=== PATIENT | male | born 1980 | race Caucasian/White ===

== ENCOUNTER 2024-06-26 16:17 | Inpatient (IN) | payer SELFPAY ==
[~2024-06-26] VITALS: Ht 188 cm; Wt 132.7 kg
[2024-06-26 17:11] LABS: BASOPHILS % 1.1 % (0.0-2.0); DIFFERENTIAL COMMENT 0; EOSINOPHILS % 1.7 % (0.0-5.0); HEMATOCRIT. 31.9 % (42.0-52.0); HEMOGLOBIN. 10.9 g/dL (14.0-18.0); LYMPHOCYTES % 16.7 % (20.0-50.0); MEAN CORPUSCULAR HEMOGLOBIN 34.2 pg (28.0-32.0); MEAN CORPUSCULAR HGB CONC 34.3 g/dL (31.0-37.0); MEAN CORPUSCULAR VOLUME 99.7 fL (80.0-94.0); MEAN PLATELET VOLUME 8.6 fl (7.4-10.4); MONOCYTES % 12.4 % (2.0-8.0); NEUTROPHILS % 68.1 % (40.0-76.0); PLATELET 58 x1000/uL (130-400); RED CELL DISTRIBUTION WIDTH 14.6 % (11.6-14.6); WHITE BLOOD COUNT 3.9 x1000/uL (4.5-11.0)
[2024-06-26 17:19] LABS: CARBON DIOXIDE 22 mEq/L (21-32); CHLORIDE 110 mEq/L (98-107); SODIUM 140 mEq/L (136-145)
[2024-06-26 17:20] LABS: CALCIUM 7.9 mg/dL (8.7-10.4)
[2024-06-26 17:21] LABS: INR 1.5; PROTHROMBIN TIME 16.7 sec (9.6-11.0)
[2024-06-26 17:25] LABS: CREATININE 0.8 mg/dL (0.6-1.3); GLUCOSE 137 mg/dL (70-105); UREA NITROGEN BLOOD 11 mg/dL (9-23)
[2024-06-26 17:32] LABS: TROPONIN I HIGH SENSITIVITY 274 ng/L (3.0-53)
[2024-06-26] MEDS: ASPIRIN 325MG EC TABLET PO ONE (18:45)
[2024-06-26 18:57] LABS: ALANINE AMINOTRANSFERASE 25 IU/L (10-49); ALBUMIN 2.7 g/dL (3.2-4.8); ASPARTATE AMINOTRANSFERASE 90 IU/L (<34)
[2024-06-26 18:58] LABS: BILIRUBIN TOTAL 1.9 mg/dL (0.1-1.0); PROTEIN TOTAL 7.2 g/dL (6.0-8.3)
[2024-06-26] MEDS: KCL 20MEQ/100ML PREMIX 100 ML IV ONE (21:02)
[2024-06-26] MEDS ORDERED: ZOLPIDEM TARTRATE 5MG TABLET PO PRN (22:00)
[2024-06-26] MEDS ORDERED: CLONIDINE 0.1MG TABLET PO PRN (22:00)
[2024-06-26] MEDS ORDERED: NITROGLYCERIN 0.4MG TABLET SL SL PRN (22:00)
[2024-06-26] MEDS ORDERED: ONDANSETRON HCL 4MG/2ML INJ IV PRN (22:00)
[2024-06-26] MEDS ORDERED: IPRATROPIUM/ALBUTEROL 0.5-3(2.5)MG/3ML NEB NEB PRN (22:00)
[2024-06-26] MEDS ORDERED: KETOROLAC 15MG/ML VIAL IV PRN (22:00)
[2024-06-26] MEDS ORDERED: MAGNESIUM/ALUMINUM HYDROXIDE/SIMETHICONE 30ML UDC PO PRN (22:00)
[2024-06-26] MEDS ORDERED: DOCUSATE SODIUM 100MG CAPSULE PO PRN (22:00)
[2024-06-26] MEDS ORDERED: ACETAMINOPHEN 325MG TABLET PO PRN ×2 (22:00)
[2024-06-26] MEDS: MORPHINE SULFATE 4 MG/ML INJ (FOR IV/IM USE) IV ONE (22:08)
[2024-06-26] MEDS: ONDANSETRON HCL 4MG/2ML INJ IV ONE (22:08)
[2024-06-26] MEDS ORDERED: DEXTROSE 50% WATER 50ML SYRINGE IV PRN (22:15)
[2024-06-26 22:22] LABS: IRON 34 ug/dL (65-175)
[2024-06-26 22:23] LABS: TRIGLYCERIDE 69 mg/dL (0-150)
[2024-06-26 22:24] LABS: ETHANOL BLOOD 66 mg/dL (<10); LDL CHOLESTEROL 46 mg/dL (5-100)
[2024-06-26 22:25] LABS: CHOLESTEROL 99 mg/dL (<200); HDL CHOLESTEROL 41 mg/dL (>55); TOTAL IRON BINDING CAPACITY 257 ug/dl (250-425)
[2024-06-26 22:28] LABS: FOLIC ACID (FOLATE) SERUM 16.57 ng/mL (>5.38)
[2024-06-26 22:29] LABS: T4 FREE 1.19 ng/dL (0.89-1.76); THYROID STIMULATING HORMONE 2.15 uIU/mL (0.55-4.78); VITAMIN B12 SERUM 1016 pg/mL (211-911)
[2024-06-26 22:41] LABS: LACTIC ACID 2.3 mmol/L (0.4-2.0)
[2024-06-27] MEDS: POTASSIUM CHLORIDE 20MEQ TABLET SR PO NR (00:09)
[2024-06-27] MEDS: MEROPENEM 1G/100ML 100 ML IV SCH ×2 (00:09→07:55)
[2024-06-27 00:21] LABS: *AMPHETAMINES SCREEN URINE NEGATIVE (NEGATIVE); *BARBITURATES SCREEN URINE NEGATIVE (NEGATIVE); *BENZODIAZEPINES SCREEN URINE NEGATIVE (NEGATIVE); *COCAINE SCREEN URINE NEGATIVE (NEGATIVE); CANNABINOID URINE SCREEN NEGATIVE (NEGATIVE); ECSTASY MDMA SCREEN URINE NEGATIVE (NEGATIVE); METHADONE URINE SCREEN NEGATIVE (NEGATIVE); OPIATES URINE SCREEN PRESUMPTIVE POSITIVE (NEGATIVE); PHENCYCLIDINE URINE SCREEN NEGATIVE (NEGATIVE)
[2024-06-27 00:48] LABS: CLARITY URINE CLEAR (CLEAR); COLOR URINE DARK YELLOW (YELLOW); GLUCOSE URINE NEGATIVE (NEGATIVE); KETONES URINE TRACE (NEGATIVE); LEUKOCYTE ESTERASE URINE TRACE (NEGATIVE); NITRITE URINE NEGATIVE (NEGATIVE); OCCULT BLOOD URINE 3+ (NEGATIVE); PROTEIN URINE 1+ (NEGATIVE); SPECIFIC GRAVITY URINE 1.021 (1.005-1.030)
[2024-06-27 01:28] VITALS: BP 134/94; PULSE 124; RESP 16; TEMP 37.7808; O2SAT 98
[2024-06-27] MEDS: MVI, ADULT NO.1 10 ML, FOLIC ACID 1 MG, THIAMINE HCL 100 MG in SODIUM CHLORIDE 0.9% 1,0... IV SCH (01:29)
[2024-06-27 02:02] LABS: BACTERIA URINE TRACE; SQUAMOUS EPITHELIAL CELL URINE RARE /lpf (RARE/1+); WBC URINE 0-2 /hpf (0-2)
[2024-06-27 04:00] VITALS: BP 139/99; PULSE 123; RESP 18; TEMP 36.9474; O2SAT 94
[2024-06-27] MEDS: BLOOD SUGAR DIAGNOSTIC STRIP TEST SCH (06:44)
[2024-06-27] MEDS: INSULIN LISPRO 100 UNITS/ML SUBCUT SCH (06:46)
[2024-06-27 06:50] LABS: CHLORIDE 109 mEq/L (98-107); POTASSIUM 3.7 mEq/L (3.5-5.1); SODIUM 138 mEq/L (136-145)
[2024-06-27 06:51] LABS: CALCIUM 7.7 mg/dL (8.7-10.4); CARBON DIOXIDE 20 mEq/L (21-32); CREATINE KINASE MB FRACTION 5.2 ng/mL (0.5-3.6); DIFFERENTIAL COMMENT 0; EOSINOPHILS % 1.6 % (0.0-5.0); HEMATOCRIT. 32.6 % (42.0-52.0); HEMOGLOBIN. 10.5 g/dL (14.0-18.0); LYMPHOCYTES % 16.9 % (20.0-50.0); MEAN CORPUSCULAR HEMOGLOBIN 32.5 pg (28.0-32.0); MEAN CORPUSCULAR HGB CONC 32.2 g/dL (31.0-37.0); MEAN PLATELET VOLUME 8.7 fl (7.4-10.4); MONOCYTES % 13.1 % (2.0-8.0); NEUTROPHILS % 67.4 % (40.0-76.0); PLATELET 60 x1000/uL (130-400); RED BLOOD CELL COUNT 3.23 mill/uL (4.7-6.1); RED CELL DISTRIBUTION WIDTH 14.9 % (11.6-14.6); WHITE BLOOD COUNT 4.2 x1000/uL (4.5-11.0)
[2024-06-27 06:56] LABS: CREATININE 0.7 mg/dL (0.6-1.3); GLUCOSE 99 mg/dL (70-105)
[2024-06-27 06:57] LABS: UREA NITROGEN BLOOD 9 mg/dL (9-23)
[2024-06-27 06:58] LABS: ALANINE AMINOTRANSFERASE 29 IU/L (10-49); ALBUMIN 2.6 g/dL (3.2-4.8); ASPARTATE AMINOTRANSFERASE 84 IU/L (<34); PHOSPHORUS 3.5 mg/dL (2.5-4.9)
[2024-06-27 06:59] LABS: BILIRUBIN TOTAL 2.7 mg/dL (0.1-1.0); PROTEIN TOTAL 7.6 g/dL (6.0-8.3)
[2024-06-27] MEDS: ASPIRIN 81MG EC TABLET PO SCH (08:28)
[2024-06-27] MEDS: FAMOTIDINE 20MG TABLET PO SCH (08:29)
[2024-06-27] MEDS: METOPROLOL TARTRATE 25MG TABLET PO SCH (08:29)
[2024-06-27] MEDS: MAGNESIUM 4 G PREMIX 100 ML IV NR (09:04)
[2024-06-27] MEDS: MAGNESIUM 2 G PREMIX 50 ML IV NR (12:01)
[2024-06-27] MEDS: SPIRONOLACTONE 25MG TABLET PO SCH (12:37)
[2024-06-27] MEDS: FUROSEMIDE 20MG/2ML VIAL IVP SCH (12:37)
[2024-06-27 14:20] VITALS: BP 114/85; PULSE 105; RESP 18; TEMP 36.5848
[2024-06-27 16:03] VITALS: BP 114/81; PULSE 101; RESP 20; TEMP 36.9474; O2SAT 93
[2024-06-27] MEDS ORDERED: GLYB5TAB7 PO (16:03)
[2024-06-27] MEDS ORDERED: ASPI-1497 PO (16:03)
[2024-06-27] MEDS ORDERED: ATOR20TA65 PO (16:03)
[2024-06-27] MEDS ORDERED: METF-416 PO (16:03)
[2024-06-27 20:00] VITALS: BP 91/68; PULSE 108; RESP 20; TEMP 35.72508; O2SAT 96
[2024-06-28] VITALS: BP 103/78; PULSE 100; RESP 20; TEMP 36.72516; O2SAT 100
[2024-06-28 04:00] VITALS: BP 99/63; PULSE 91; RESP 19; TEMP 36.28068; O2SAT 97
[2024-06-28 08:00] VITALS: BP 129/86; PULSE 115; RESP 18; TEMP 36.61404; O2SAT 96
[2024-06-28] MEDS: GUAIFENESIN 200MG/10ML SUGAR FREE UDC PO PRN (09:45)
[2024-06-28 12:00] VITALS: BP 96/74; PULSE 105; RESP 19; TEMP 35.94732; O2SAT 97
[2024-06-28] MEDS: SODIUM HYPOCHLORITE 0.125% 473ML SOLUTION TOP SCH (14:47)
[2024-06-28 16:00] VITALS: BP 95/68; PULSE 97; RESP 18; TEMP 35.94732; O2SAT 99
[2024-06-28 20:00] VITALS: BP 122/88; PULSE 100; RESP 20; TEMP 36.00288; O2SAT 100
[2024-06-29] VITALS: BP 97/67; PULSE 93; RESP 18; TEMP 36.3918; O2SAT 100
[2024-06-29 04:00] VITALS: BP 115/81; PULSE 97; RESP 18; TEMP 36.44736; O2SAT 100
[2024-06-29] MEDS ORDERED: FURO-152 MT (09:02)
[2024-06-29] MEDS ORDERED: LOSA-413 MT (09:02)
[2024-06-29] MEDS ORDERED: METO-396 MT (09:02)
[2024-06-29] MEDS ORDERED: SPIR25TA PO (09:02)
[2024-06-29] MEDS ORDERED: ASPI-1497 PO (09:02)
[2024-06-29 12:00] VITALS: BP_SYST 105; BP_SYST 114; BP_DIAS 72; BP_DIAS 84; PULSE 91; RESP 17; RESP 18; TEMP 36.44736; O2SAT 96; O2SAT 98
[2024-06-29] MEDS ORDERED: THIA50TA12 MT (12:54)
[2024-06-29] MEDS ORDERED: FOLI-43 MT (12:54)
[2024-06-29 13:20] VITALS: BP 105/72; PULSE 91; TEMP 97.6; O2SAT 99
== END 2024-06-29 14:00 | disposition home or self-care (01) | DRG 194 ==
LOC: ER 16:17 → 5WST 21:26 → EDBEDREQ 21:27 → 7WST 06-27 14:18
PROVIDERS: ADMIT Internal Medicine; ATTEND Internal Medicine
DX: I11.0 Hypertensive heart disease with heart failure (principal); I21.A1 Myocardial infarction type 2; D61.818 Other pancytopenia; E44.0 Moderate protein-calorie malnutrition; D63.8 Anemia in other chronic diseases classified elsewhere; I83.009 Varicose veins of unspecified lower extremity with ulcer of unspecified site; L97.918 Non-pressure chronic ulcer of unspecified part of right lower leg with other specified severity; K74.60 Unspecified cirrhosis of liver; I50.9 Heart failure, unspecified; E11.9 Type 2 diabetes mellitus without complications; L03.90 Cellulitis, unspecified; E87.6 Hypokalemia; L97.928 Non-pressure chronic ulcer of unspecified part of left lower leg with other specified severity; I42.0 Dilated cardiomyopathy; F10.229 Alcohol dependence with intoxication, unspecified; Z68.37 Body mass index [BMI] 37.0-37.9, adult
CPT/HCPCS: 36415; 71045; 80048; 80053; 80061; 80076; 80305; 80320; 81003; 82550; 82553; 82607; 82746; 82962; 83036; 83540; 83550; 83605; 83735; 84100; 84145; 84439; 84443; 84484; 85025; 85379; 93005; 93306; 93970; 99285; J1815; J1940; J2185; J2270; J2405; J3411; J3475; J3480; J3490; J7030; G0480